=== PATIENT | female | born 1945 | race Hispanic/Latino ===

== ENCOUNTER 2018-10-23 11:36 | Emergency (ER) | payer MEDICARE ==
[~2018-10-23 11:36] MED LIST: ACET1TAB12 PO; ALBU18HF7 IH; ALBUHFA IH; ALEN70TA10; APIX5TAB; APIX5TAB PO; ASPI-555 PO; ATOR20TA65 PO; DICY20TA11 PO; FERR-63 PO; FERR324T4 PO; INSLAN SQ; INSU10VI3 SQ; LISI2.5T2 PO; METO25 PO; METO25TA6 PO; MULT-1192 PO; NITR0.4T SL; NITR0.4T50 SL; OMEP20CA10; OMEP20TA25 PO; SIMV40TA59 PO; TORS10TA18 PO; TORS20TA4 PO; TYL3 PO; ZOLP10TA6 PO
[2018-10-23 12:38] LABS: BASOPHILS % (AUTO) 0.2 % (0.0-5.0); EOSINOPHILS % (AUTO) 0.3 % (0.0-8.0); HEMATOCRIT 35.7 % (36-48); LYMPHOCYTES % (AUTO) 12.9 % (21.0-51.0); MEAN CORPUSCULAR HEMOGLOBIN 29.7 pg (27.0-33.0); MEAN CORPUSCULAR HGB CONC 33.6 g/dL (32.0-36.0); MEAN CORPUSCULAR VOLUME 88.4 fL (79-99); MONOCYTES % (AUTO) 6.4 % (3.0-13.0); NEUTROPHILS % (AUTO) 80.2 % (40.0-77.0); PLATELET COUNT (AUTO) 209 K/uL (130-400); RED BLOOD CELL COUNT(AUTO) 4.04 MIL/uL (4.00-5.50); RED CELL DISTRIBUTION WIDTH 14.3 % (11.0-15.5); WHITE BLOOD COUNT (AUTO) 10.4 K/uL (4.8-10.8)
[2018-10-23 12:55] LABS: ALANINE AMINOTRANSFERASE 21 U/L (12-78); ALBUMIN 2.9 g/dL (3.5-5.0); ALCOHOL, BLOOD < 3 mg/dL (0-10); ASPARTATE AMINOTRANSFERASE 30 U/L (10-37); BILIRUBIN,TOTAL 0.6 mg/dL (0.2-1.0); CARBON DIOXIDE 21 mmol/L (21-32); CREATININE 1.4 mg/dL (0.5-1.5); GLOMERULAR FILTR. RATE CALC 39 mL/min (>60); POTASSIUM 4.2 mmol/L (3.5-5.1); SODIUM SERUM 126 mmol/L (136-145); TOTAL PROTEIN, SERUM 7.6 g/dL (6.0-8.3); UREA NITROGEN, BLOOD 41 mg/dL (7-18)
[2018-10-23 13:04] LABS: CHLORIDE 89 mmol/L (101-111); GLUCOSE,RANDOM 585 mg/dL (70-105)
[2018-10-23] MEDS ORDERED: INSULIN HUMULIN R 100 UNIT/ML 3ML ONE (14:50)
[2018-10-23] MEDS ORDERED: SODIUM CHLORIDE 0.9% 1000ML 1,000 ML IV ONE (14:54)
== END 2018-10-23 16:36 | disposition short-term general hospital (02) ==
LOC: EDH 11:36
DX: G46.4 Cerebellar stroke syndrome (principal); G93.6 Cerebral edema; R51 Headache; I10 Essential (primary) hypertension; E78.5 Hyperlipidemia, unspecified; E11.9 Type 2 diabetes mellitus without complications; Z98.890 Other specified postprocedural states
CPT/HCPCS: 36415; 70450; 80053; 85025; 93005; 96361; 96374; 99285; G0480; J1815; J7030

== ENCOUNTER 2022-08-07 14:01 | Emergency (ER) | payer MEDICARE ==
[~2022-08-07] VITALS: Ht 152.4 cm; Wt 90.7 kg
[~2022-08-07 14:01] MED LIST changes: -ACET1TAB12 PO; -ALBU18HF7 IH; -ALBUHFA IH; -ALEN70TA10; -APIX5TAB; -APIX5TAB PO; -ASPI-555 PO; +ASPI-556 PO; +BENZ-226 PO; +CLOP75TA32 PO; -DICY20TA11 PO; -FERR-63 PO; -FERR324T4 PO; -INSLAN SQ; -INSU10VI3 SQ; -LISI2.5T2 PO; +LORA10TA7 PO; -METO25 PO; -METO25TA6 PO; -MULT-1192 PO; -NITR0.4T50 SL; -OMEP20CA10; -OMEP20TA25 PO; +SACU1TAB PO; -SIMV40TA59 PO; -TORS10TA18 PO; -TYL3 PO; -ZOLP10TA6 PO
[2022-08-07 14:37] VITALS: BP 108/41
== END 2022-08-07 15:43 | disposition home or self-care (01) ==
LOC: EDH 14:01
DX: S81.832A Puncture wound without foreign body, left lower leg, initial encounter (principal); I10 Essential (primary) hypertension; E11.9 Type 2 diabetes mellitus without complications; E78.00 Pure hypercholesterolemia, unspecified; Z79.899 Other long term (current) drug therapy; Z79.82 Long term (current) use of aspirin; Z88.5 Allergy status to narcotic agent; Z88.8 Allergy status to other drugs, medicaments and biological substances; Z98.890 Other specified postprocedural states; Z95.1 Presence of aortocoronary bypass graft; X58.XXXA Exposure to other specified factors, initial encounter; Y93.89 Activity, other specified; Y92.89 Other specified places as the place of occurrence of the external cause; Y99.8 Other external cause status
CPT/HCPCS: 99281

== ENCOUNTER → 2022-10-22 | Outpatient (CLI) | payer MEDICARE ==
[~2022-10-22] MED LIST changes: +APIX5TAB PO; -ATOR20TA65 PO; +ATOR40TA69 PO; +BISA-151 PO; -CLOP75TA32 PO; +MECL-226 PO; +METO-409 PO; +METO2.5T2 PO; +PANT40TA PO
[2022-10-22 16:49] LABS: CREATININE 2.4 mg/dL (0.5-1.5); POTASSIUM 3.1 mmol/L (3.5-5.1)
== END | disposition home or self-care (01) ==
LOC: LAB 15:04
PROVIDERS: ATTEND Internal Medicine Cardiovascular Disease
DX: I10 Essential (primary) hypertension (principal)
CPT/HCPCS: 36415; 80048; 83880

== ENCOUNTER → 2022-11-01 | Outpatient (CLI) | payer MEDICARE ==
[2022-11-01 12:55] LABS: CREATININE 1.9 mg/dL (0.5-1.5)
[2022-11-01 14:21] LABS: POTASSIUM 2.6 mmol/L (3.5-5.1)
== END | disposition home or self-care (01) ==
LOC: LAB 10:50
PROVIDERS: ATTEND Internal Medicine Cardiovascular Disease
DX: I10 Essential (primary) hypertension (principal)
CPT/HCPCS: 36415; 80048

== ENCOUNTER → 2022-11-13 | Outpatient (CLI) | payer MEDICARE ==
[2022-11-13 16:29] LABS: CREATININE 2.4 mg/dL (0.5-1.5); POTASSIUM 3.9 mmol/L (3.5-5.1)
== END | disposition home or self-care (01) ==
LOC: LAB 12:51
PROVIDERS: ATTEND Internal Medicine Cardiovascular Disease
DX: I10 Essential (primary) hypertension (principal)
CPT/HCPCS: 36415; 80048

== ENCOUNTER → 2022-11-27 | Outpatient (CLI) | payer MEDICARE ==
[~2022-11-27] MED LIST changes: -APIX5TAB PO; -ASPI-556 PO; -METO-409 PO; -METO2.5T2 PO
[2022-11-27 16:37] LABS: CREATININE 1.2 mg/dL (0.5-1.5)
== END | disposition home or self-care (01) ==
LOC: LAB 11:57
PROVIDERS: ATTEND Internal Medicine Cardiovascular Disease
DX: I10 Essential (primary) hypertension (principal)
CPT/HCPCS: 36415; 80048

== ENCOUNTER 2022-12-06 12:57 | Inpatient (IN) | payer MEDICARE ==
[~2022-12-06] VITALS: Ht 152.4 cm; Wt 63.9 kg
[2022-12-06] MEDS ORDERED: METOPROLOL TARTRATE 1 MG/ML 5ML VIAL IV ONE (13:01)
[2022-12-06] MEDS ORDERED: ACETAMINOPHEN 650 MG SUPPOSITORY RC ONE (13:02)
[2022-12-06 13:12] VITALS: PULSE 110; RESP 31; O2SAT 97
[2022-12-06] MEDS ORDERED: METO-409 PO (13:19)
[2022-12-06 13:20] LABS: BASOPHILS # (AUTO) 0.03 K/uL (0.00-0.20); BASOPHILS % (AUTO) 0.2 % (0.0-5.0); EOSINOPHILS # (AUTO) 0.01 K/uL (0.00-0.70); EOSINOPHILS % (AUTO) 0.1 % (0.0-8.0); HEMATOCRIT 37.6 % (36-48); IMMATURE GRANULOCYTE ABSOLUTE 0.18 K/uL (0-1); LYMPHOCYTES # (AUTO) 0.7 K/uL (1.0-4.8); LYMPHOCYTES % (AUTO) 3.9 % (21.0-51.0); MEAN CORPUSCULAR HEMOGLOBIN 28.1 pg (27.0-33.0); MEAN CORPUSCULAR HGB CONC 32.7 g/dL (32.0-36.0); MEAN CORPUSCULAR VOLUME 85.8 fL (79-99); MONOCYTES # (AUTO) 0.7 K/uL (0.1-1.0); MONOCYTES % (AUTO) 4.2 % (3.0-13.0); NEUTROPHILS # (AUTO) 15.1 K/uL (1.8-7.7); NEUTROPHILS % (AUTO) 90.5 % (40.0-77.0); PLATELET COUNT (AUTO) 168 K/uL (130-400); RED BLOOD CELL COUNT(AUTO) 4.38 MIL/uL (4.00-5.50); RED CELL DISTRIBUTION WIDTH 16.7 % (11.0-15.5); WHITE BLOOD COUNT (AUTO) 16.6 K/uL (4.8-10.8)
[2022-12-06] MEDS ORDERED: PANT40TA54 PO (13:21)
[2022-12-06] MEDS ORDERED: LORA10TA7 PO (13:22)
[2022-12-06] MEDS ORDERED: METO-391 PO (13:22)
[2022-12-06] MEDS ORDERED: SPIR25TA6 PO (13:23)
[2022-12-06] MEDS ORDERED: TRAM-355 PO (13:25)
[2022-12-06] MEDS ORDERED: TORS20TA4 PO (13:26)
[2022-12-06] MEDS ORDERED: MECL-226 PO (13:27)
[2022-12-06] MEDS ORDERED: SACU1TAB PO (13:28)
[2022-12-06] MEDS ORDERED: MEGE40TA33 PO (13:30)
[2022-12-06] MEDS ORDERED: ZOSYN 3.375GM +NS 50ML IVPB ONE (13:30)
[2022-12-06] MEDS ORDERED: ATORVASTATIN PO (13:31)
[2022-12-06] MEDS ORDERED: HYDROXYZ HCL PO (13:32)
[2022-12-06 13:35] LABS: CREATININE 2.5 mg/dL (0.5-1.5); POTASSIUM 4.1 mmol/L (3.5-5.1)
[2022-12-06] MEDS ORDERED: APIX2.5T PO (13:35)
[2022-12-06 13:42] LABS: ALBUMIN 2.6 g/dL (3.5-5.0); BILIRUBIN,TOTAL 0.7 mg/dL (0.2-1.0); TOTAL PROTEIN, SERUM 7.7 g/dL (6.0-8.3)
[2022-12-06 13:43] LABS: INR 1.24 (0.85-1.15); PROTHROMBIN TIME 14.2 SEC (9.6-11.6)
[2022-12-06 13:44] LABS: PARTIAL THROMBOPLASTIN TIME 40.7 SEC (26.3-35.5)
[2022-12-06] MEDS ORDERED: PHENYLEPHRINE HCL 10 MG/ML 1ML VIAL IV ONE ×4 (14:03→22:58)
[2022-12-06 14:12] LABS: APPEARANCE,URINE TURBID (CLEAR); BILIRUBIN,URINE NEGATIVE (NEGATIVE); COLOR,URINE LIGHT-ORANGE (YELLOW); GLUCOSE, URINE (UA) >=1000 mg/dL (NEGATIVE); KETONES,URINE NEGATIVE (NEGATIVE); LEUKOCYTE ESTERASE ,URINE 500 Leu/uL (NEGATIVE); NITRATE,URINE NEGATIVE (NEGATIVE); OCCULT BLOOD,URINE MODERATE (NEGATIVE); PH,URINE 5.5 (5.0-8.0); PROTEIN,URINE 70 mg/dL (NEGATIVE); UROBILINOGEN,URINE 0.2 mg/dL (0.2-1.0)
[2022-12-06 14:14] LABS: ABG BASE EXCESS -6.1 mmol/L (-2.0-3.0); ABG HCO3 17.7 mmol/L (21.0-28.0); ABG OXYGEN SATURATION 99.1 % (95.0-99.0); ABG PCO2 31 mmHg (32-45); ABG PH 7.378 (7.35-7.450); DEVICE COMMENT RR; PO2, ARTERIAL BG 167.9 mmHg (83.0-108.0); VENT MODE, BG BIPAP 12.6 (ROOM AIR)
[2022-12-06 14:16] LABS: ADD UA MICROSCOPIC YES
[2022-12-06 14:19] LABS: BACTERIA,URINE MOD /HPF (None Seen); SQUAMOUS EPITHELIAL CELL,UR FEW /HPF (0-2); WBC CLUMP MANY /HPF (0-1); WBC,URINE TNTC /HPF (0-1)
[2022-12-06] MEDS: PHENYLEPHRINE HCL 10 MG in 0.9% NACL 250ML 250 ML IV PRN ×2 (15:06→17:29)
[2022-12-06 15:16] VITALS: TEMP 98.2
[2022-12-06] MEDS ORDERED: ACETAMINOPHEN 325 MG TAB PO PRN (16:00)
[2022-12-06] MEDS ORDERED: ONDANSETRON 4MG INJ IV PRN (16:00)
[2022-12-06] MEDS ORDERED: MORPHINE 2 MG SYG IV PRN (16:00)
[2022-12-06 16:28] LABS: HEMOGLOBIN A1C 11.8 % (4.0-6.0)
[2022-12-06] MEDS ORDERED: ENOXAPARIN SODIUM 60 MG/0.6 ML SQ ONE (20:46)
[2022-12-06] MEDS: FAMOTIDINE 20MG VIAL IV SCH (20:47)
[2022-12-06] MEDS: ATORVASTATIN 40 MG TABLET PO SCH (20:48)
[2022-12-06] MEDS: ZOSYN 3.375GM+NS 50ML 50 ML IVPB SCH (20:48)
[2022-12-06] MEDS ORDERED: ZOSYN 3.375GM+NS 50ML 50 ML IV SCH (21:00)
[2022-12-06 22:45] VITALS: PULSE 128; RESP 28; O2SAT 100
[2022-12-07] VITALS (9 sets, daily range): PULSE 19–144; RESP 22–28; O2SAT 96–100
[2022-12-07] MEDS ORDERED: PHENYLEPHRINE HCL 10 MG/ML 1ML VIAL IV ONE ×2 (03:40→12:44)
[2022-12-07] MEDS ORDERED: SODIUM BICARB 8.4% 50ML SYRINGE ONE (06:54)
[2022-12-07 06:56] LABS: HEMATOCRIT 36.9 % (36-48); MEAN CORPUSCULAR HEMOGLOBIN 27.9 pg (27.0-33.0); MEAN CORPUSCULAR HGB CONC 32.2 g/dL (32.0-36.0); MEAN CORPUSCULAR VOLUME 86.6 fL (79-99); RED BLOOD CELL COUNT(AUTO) 4.26 MIL/uL (4.00-5.50); RED CELL DISTRIBUTION WIDTH 17.4 % (11.0-15.5)
[2022-12-07 06:57] LABS: BASOPHILS # (AUTO) 0.05 K/uL (0.00-0.20); BASOPHILS % (AUTO) 0.3 % (0.0-5.0); EOSINOPHILS # (AUTO) 1.41 K/uL (0.00-0.70); EOSINOPHILS % (AUTO) 7.1 % (0.0-8.0); IMMATURE GRANULOCYTE ABSOLUTE 0.13 K/uL (0-1); LYMPHOCYTES # (AUTO) 0.7 K/uL (1.0-4.8); LYMPHOCYTES % (AUTO) 3.6 % (21.0-51.0); MONOCYTES # (AUTO) 0.8 K/uL (0.1-1.0); MONOCYTES % (AUTO) 3.9 % (3.0-13.0); NEUTROPHILS # (AUTO) 16.9 K/uL (1.8-7.7); NEUTROPHILS % (AUTO) 84.4 % (40.0-77.0); PLATELET COUNT (AUTO) 186 K/uL (130-400)
[2022-12-07 07:09] LABS: ALBUMIN 2.4 g/dL (3.5-5.0); BILIRUBIN,TOTAL 0.7 mg/dL (0.2-1.0); CREATININE 2.4 mg/dL (0.5-1.5); TOTAL PROTEIN, SERUM 7.4 g/dL (6.0-8.3)
[2022-12-07] MEDS: PHENYLEPHRINE HCL 10 MG in 0.9% NACL 250ML 250 ML IV PRN ×3 (07:15→12:46)
[2022-12-07 07:19] LABS: CRP QUANTITATIVE 443.1 mg/L (0.00-9.0)
[2022-12-07] MEDS ORDERED: INSULIN HUMULIN R 100 UNIT/ML 3ML SQ SCH ×2 (07:30→12:00)
[2022-12-07] MEDS: ASPIRIN 81MG CHEW TAB PO SCH (08:15)
[2022-12-07] MEDS: ZOSYN 3.375GM+NS 50ML 50 ML IVPB SCH (08:16)
[2022-12-07] MEDS: FAMOTIDINE 20MG VIAL IV SCH (08:16)
[2022-12-07 08:26] LABS: ERYTHROCYTE SEDIMENTATION RATE 80 MM/HR (0-30)
[2022-12-07] MEDS ORDERED: ENOXAPARIN SODIUM 40 MG/0.4 ML SYRINGE SQ SCH (09:00)
[2022-12-07] MEDS ORDERED: MEROPENEM 1 GM VIAL ONE (09:58)
[2022-12-07] MEDS: MEROPENEM 1 GM in 0.9%NACL 100ML 100 ML IV SCH ×2 (09:59→20:31)
[2022-12-07] MEDS ORDERED: AMIODARONE 150MG VIAL 150 MG in DEXTROSE 5%-WATER 100 ML IV SCH (10:00)
[2022-12-07] MEDS ORDERED: AMIODARONE 900MG VIAL 360 MG in DEXTROSE 5%-WATER 200 ML IV SCH (10:00)
[2022-12-07] MEDS ORDERED: RENAL DOSE IV PRN (10:00)
[2022-12-07 10:11] LABS: SARS-CoV-2, RNA, NAAT NEGATIVE SARS CoV-2 (NEGATIVE)
[2022-12-07 10:14] LABS: INFLUENZA TYPE A Negative For Type A (NEGATIVE); INFLUENZA TYPE B Negative For Type B (NEGATIVE)
[2022-12-07] MEDS ORDERED: FUROSEMIDE 40MG VIAL IV ONE (11:00)
[2022-12-07 11:03] LABS: ABG BASE EXCESS -15.2 mmol/L (-2.0-3.0); ABG HCO3 10.5 mmol/L (21.0-28.0); ABG OXYGEN SATURATION 97.8 % (95.0-99.0); ABG PCO2 25 mmHg (32-45); ABG PH 7.233 (7.35-7.450); PO2, ARTERIAL BG 120.5 mmHg (83.0-108.0); VENT MODE, BG BIPAP 10-5 (ROOM AIR)
[2022-12-07] MEDS: SODIUM BICARB 50MEQ 50ML VIAL IV SCH (12:33)
[2022-12-07] MEDS: SODIUM BICARBONATE 650 MG TAB PO SCH ×2 (14:14→20:29)
[2022-12-07] MEDS ORDERED: INSULIN REGULAR, HUMAN 3ML 100 UNIT in 0.9%NACL 100ML 100 ML IV SCH ×2 (16:30)
[2022-12-07] MEDS ORDERED: MAGNESIUM 2GM PREMIX 50ML 50 ML IV SCH (16:30)
[2022-12-07] MEDS ORDERED: MANNITOL 20% IV SCH (16:30)
[2022-12-07] MEDS ORDERED: 0.9%NACL 1000ML 1,000 ML IV SCH (16:30)
[2022-12-07] MEDS ORDERED: D5W-1/2 NS/20MEQ KCL 1,000 ML IV SCH (16:30)
[2022-12-07] MEDS: AMIODARONE 900MG VIAL 540 MG in DEXTROSE 5%-WATER 300 ML IV SCH (16:37)
[2022-12-07] MEDS ORDERED: INSULIN HUMULIN R 100 UNIT/ML 3ML ONE (16:43)
[2022-12-07] MEDS: SODIUM BICARB 8.4% 50ML SYRINGE IVP SCH (17:17)
[2022-12-07 18:51] LABS: CREATININE 2.3 mg/dL (0.5-1.5); MAGNESIUM 1.8 mg/dL (1.80-2.40); PHOSPHORUS 2.8 mg/dL (2.5-4.9); POTASSIUM 3.3 mmol/L (3.5-5.1)
[2022-12-07] MEDS: POTASSIUM CHLORIDE 10MEQ/100ML 100 ML IV PRN (20:11)
[2022-12-07] MEDS: INSULIN GLARGINE 100 UNITS/ML 10 ML VIAL SQ SCH (20:29)
[2022-12-07] MEDS: ATORVASTATIN 40 MG TABLET PO SCH (20:29)
[2022-12-07] MEDS ORDERED: INSULIN GLARGINE 100 UNITS/ML 10 ML VIAL SQ SCH (21:00)
[2022-12-08] VITALS (34 sets, daily range): BP systolic 95–125; BP diastolic 53–79; PULSE 114–144; RESP 15–22; O2SAT 100
[2022-12-08 00:48] LABS: MAGNESIUM 2.4 mg/dL (1.80-2.40); PHOSPHORUS 2.1 mg/dL (2.5-4.9)
[2022-12-08 00:49] LABS: POTASSIUM 2.9 mmol/L (3.5-5.1)
[2022-12-08] MEDS ORDERED: POTASSIUM CHLORIDE 20MEQ/100ML 100 ML IV ONE ×2 (01:00→03:03)
[2022-12-08] MEDS: SODIUM BICARB 8.4% 50ML SYRINGE IVP SCH ×2 (05:00)
[2022-12-08 06:26] LABS: BASOPHILS # (AUTO) 0.02 K/uL (0.00-0.20); BASOPHILS % (AUTO) 0.2 % (0.0-5.0); HEMATOCRIT 30.5 % (36-48); LYMPHOCYTES # (AUTO) 0.7 K/uL (1.0-4.8); LYMPHOCYTES % (AUTO) 5.9 % (21.0-51.0); MEAN CORPUSCULAR HEMOGLOBIN 27.5 pg (27.0-33.0); MEAN CORPUSCULAR HGB CONC 32.5 g/dL (32.0-36.0); MEAN CORPUSCULAR VOLUME 84.7 fL (79-99); MONOCYTES # (AUTO) 0.9 K/uL (0.1-1.0); MONOCYTES % (AUTO) 7.5 % (3.0-13.0); NEUTROPHILS # (AUTO) 10.6 K/uL (1.8-7.7); NEUTROPHILS % (AUTO) 85.6 % (40.0-77.0); NUCLEATED RED BLOOD CELLS 0.2 % (0.0-0.19); PLATELET COUNT (AUTO) 152 K/uL (130-400); RED CELL DISTRIBUTION WIDTH 17.6 % (11.0-15.5); WHITE BLOOD COUNT (AUTO) 12.3 K/uL (4.8-10.8)
[2022-12-08 06:41] LABS: CREATININE 1.8 mg/dL (0.5-1.5); MAGNESIUM 2.2 mg/dL (1.80-2.40); PHOSPHORUS 2.2 mg/dL (2.5-4.9); POTASSIUM 4.6 mmol/L (3.5-5.1)
[2022-12-08 06:48] LABS: ALBUMIN 1.9 g/dL (3.5-5.0); BILIRUBIN,TOTAL 0.6 mg/dL (0.2-1.0); CREATININE 1.8 mg/dL (0.5-1.5); POTASSIUM 4.6 mmol/L (3.5-5.1); TOTAL PROTEIN, SERUM 5.5 g/dL (6.0-8.3)
[2022-12-08 06:54] LABS: CRP QUANTITATIVE 423.6 mg/L (0.00-9.0)
[2022-12-08 07:08] LABS: B-TYPE NATRIURETIC PEPTIDE 3110 pg/mL (0-100)
[2022-12-08 07:24] LABS: MAGNESIUM 2.3 mg/dL (1.80-2.40); PHOSPHORUS 2.6 mg/dL (2.5-4.9)
[2022-12-08] MEDS: SODIUM BICARBONATE 650 MG TAB PO SCH ×3 (09:05→20:22)
[2022-12-08] MEDS: PANTOPRAZOLE 40 MG/VIAL IVP SCH (09:05)
[2022-12-08] MEDS: 0.9%NACL 10ML VIAL IV SCH ×2 (09:06→20:22)
[2022-12-08] MEDS: INSULIN GLARGINE 100 UNITS/ML 10 ML VIAL SQ SCH ×2 (09:06→20:31)
[2022-12-08] MEDS: ASPIRIN 81MG CHEW TAB PO SCH (09:06)
[2022-12-08] MEDS ORDERED: MEROPENEM 1 GM VIAL ONE (09:08)
[2022-12-08] MEDS: MEROPENEM 1 GM in 0.9%NACL 100ML 100 ML IV SCH ×2 (09:10→20:33)
[2022-12-08] MEDS ORDERED: AMIODARONE 900MG VIAL 900 MG in DEXTROSE 5%-WATER 500 ML IV SCH (11:00)
[2022-12-08] MEDS: LINEZOLID 600 MG/ISO-OSM 300 ML IV SCH ×2 (11:12→22:03)
[2022-12-08] MEDS ORDERED: INSULIN HUMULIN R 100 UNIT/ML 3ML SQ SCH (11:30)
[2022-12-08] MEDS: SODIUM BICARB 50MEQ 50ML VIAL IV SCH (12:30)
[2022-12-08 12:48] LABS: CREATININE 1.7 mg/dL (0.5-1.5); MAGNESIUM 2.4 mg/dL (1.80-2.40); PHOSPHORUS 1.5 mg/dL (2.5-4.9); POTASSIUM 4.2 mmol/L (3.5-5.1)
[2022-12-08] MEDS ORDERED: AMIODARONE 150MG VIAL 150 MG in DEXTROSE 5%-WATER 100 ML IV STA (14:29)
[2022-12-08] MEDS ORDERED: PHARMACY COMMUNICATION MISC SCH (14:30)
[2022-12-08] MEDS: AMIODARONE 900MG VIAL 540 MG in DEXTROSE 5%-WATER 300 ML IV SCH (14:37)
[2022-12-08] MEDS ORDERED: INSULIN HUMULIN R 100 UNIT/ML 3ML ONE (14:47)
[2022-12-08] MEDS: INSULIN HUMULIN R 100 UNIT/ML 3ML SQ SCH ×2 (14:49→20:29)
[2022-12-08] MEDS: PHENYLEPHRINE HCL 10 MG in 0.9% NACL 250ML 250 ML IV PRN (16:02)
[2022-12-08] MEDS: ATORVASTATIN 40 MG TABLET PO SCH (20:22)
[2022-12-08] MEDS ORDERED: ENOXAPARIN SODIUM 60 MG/0.6 ML SQ ONE (21:00)
[2022-12-08] MEDS ORDERED: ENOXAPARIN SODIUM 60 MG/0.6 ML SQ SCH (21:00)
[2022-12-09] VITALS (97 sets, daily range): BP systolic 77–140; BP diastolic 39–99; PULSE 90–146; RESP 7–32; O2SAT 99–100
[2022-12-09 01:30] LABS: CREATININE 1.4 mg/dL (0.5-1.5); MAGNESIUM 2.1 mg/dL (1.80-2.40); PHOSPHORUS 1.4 mg/dL (2.5-4.9); POTASSIUM 3.3 mmol/L (3.5-5.1)
[2022-12-09] MEDS: POTASSIUM CHLORIDE 10MEQ/100ML 100 ML IV PRN ×3 (02:04→05:34)
[2022-12-09 06:13] LABS: BASOPHILS # (AUTO) 0.02 K/uL (0.00-0.20); BASOPHILS % (AUTO) 0.1 % (0.0-5.0); EOSINOPHILS # (AUTO) 0.23 K/uL (0.00-0.70); EOSINOPHILS % (AUTO) 1.7 % (0.0-8.0); HEMATOCRIT 30.4 % (36-48); IMMATURE GRANULOCYTE ABSOLUTE 0.15 K/uL (0-1); LYMPHOCYTES # (AUTO) 1.6 K/uL (1.0-4.8); LYMPHOCYTES % (AUTO) 11.6 % (21.0-51.0); MEAN CORPUSCULAR HEMOGLOBIN 28.2 pg (27.0-33.0); MEAN CORPUSCULAR HGB CONC 33.2 g/dL (32.0-36.0); MEAN CORPUSCULAR VOLUME 84.9 fL (79-99); MONOCYTES # (AUTO) 0.9 K/uL (0.1-1.0); MONOCYTES % (AUTO) 6.8 % (3.0-13.0); NEUTROPHILS % (AUTO) 78.7 % (40.0-77.0); PLATELET COUNT (AUTO) 151 K/uL (130-400); RED BLOOD CELL COUNT(AUTO) 3.58 MIL/uL (4.00-5.50); RED CELL DISTRIBUTION WIDTH 17.9 % (11.0-15.5); WHITE BLOOD COUNT (AUTO) 13.9 K/uL (4.8-10.8)
[2022-12-09] MEDS: INSULIN GLARGINE 100 UNITS/ML 10 ML VIAL SQ SCH ×2 (06:27→20:33)
[2022-12-09] MEDS: INSULIN HUMULIN R 100 UNIT/ML 3ML SQ SCH ×4 (06:29→20:35)
[2022-12-09] MEDS: AMIODARONE 900MG VIAL 540 MG in DEXTROSE 5%-WATER 300 ML IV SCH (06:36)
[2022-12-09 06:54] LABS: B-TYPE NATRIURETIC PEPTIDE 1050 pg/mL (0-100)
[2022-12-09] MEDS ORDERED: AMIODARONE 150MG VIAL 150 MG in DEXTROSE 5%-WATER 100 ML IV SCH ×2 (08:00→16:30)
[2022-12-09] MEDS: PANTOPRAZOLE 40 MG/VIAL IVP SCH (08:27)
[2022-12-09] MEDS: ENOXAPARIN SODIUM 60 MG/0.6 ML SQ SCH ×2 (08:27→08:30)
[2022-12-09] MEDS: ASPIRIN 81MG CHEW TAB PO SCH (08:28)
[2022-12-09] MEDS: 0.9%NACL 10ML VIAL IV SCH ×2 (08:28→20:34)
[2022-12-09] MEDS: SODIUM BICARBONATE 650 MG TAB PO SCH ×3 (08:28→20:32)
[2022-12-09 08:41] LABS: ALBUMIN 1.8 g/dL (3.5-5.0); BILIRUBIN,TOTAL 0.4 mg/dL (0.2-1.0); CREATININE 1.3 mg/dL (0.5-1.5); POTASSIUM 3.9 mmol/L (3.5-5.1); TOTAL PROTEIN, SERUM 6.1 g/dL (6.0-8.3)
[2022-12-09 09:20] LABS: MAGNESIUM 2.1 mg/dL (1.80-2.40); PHOSPHORUS 1.6 mg/dL (2.5-4.9)
[2022-12-09] MEDS: MEROPENEM 1 GM in 0.9%NACL 100ML 100 ML IV SCH ×2 (09:53→20:32)
[2022-12-09] MEDS: AMIODARONE 150MG VIAL 150 MG in DEXTROSE 5%-WATER 100 ML IV SCH ×2 (10:15→16:29)
[2022-12-09] MEDS: LINEZOLID 600 MG/ISO-OSM 300 ML IV SCH ×2 (10:35→20:32)
[2022-12-09] MEDS: SODIUM BICARB 50MEQ 50ML VIAL IV SCH (12:30)
[2022-12-09] MEDS: IPRATROPIUM 0.5 MG/2.5 ML INH IH SCH (18:00)
[2022-12-09] MEDS: ATORVASTATIN 40 MG TABLET PO SCH (20:31)
[2022-12-09] MEDS ORDERED: METOPROLOL TARTRATE 25 MG TAB PO SCH (21:00)
[2022-12-10] VITALS (103 sets, daily range): BP systolic 90–131; BP diastolic 41–92; PULSE 98–136; RESP 4–35; O2SAT 97–100
[2022-12-10] MEDS: AMIODARONE 900MG VIAL 540 MG in DEXTROSE 5%-WATER 300 ML IV SCH (03:19)
[2022-12-10 05:22] LABS: BASOPHILS # (AUTO) 0.03 K/uL (0.00-0.20); BASOPHILS % (AUTO) 0.3 % (0.0-5.0); EOSINOPHILS # (AUTO) 0.33 K/uL (0.00-0.70); EOSINOPHILS % (AUTO) 2.8 % (0.0-8.0); HEMATOCRIT 33.2 % (36-48); IMMATURE GRANULOCYTE ABSOLUTE 0.13 K/uL (0-1); LYMPHOCYTES # (AUTO) 1.9 K/uL (1.0-4.8); MEAN CORPUSCULAR HEMOGLOBIN 27.4 pg (27.0-33.0); MEAN CORPUSCULAR HGB CONC 32.2 g/dL (32.0-36.0); MEAN CORPUSCULAR VOLUME 84.9 fL (79-99); MONOCYTES # (AUTO) 0.6 K/uL (0.1-1.0); MONOCYTES % (AUTO) 5.5 % (3.0-13.0); NEUTROPHILS # (AUTO) 8.6 K/uL (1.8-7.7); NEUTROPHILS % (AUTO) 74.3 % (40.0-77.0); PLATELET COUNT (AUTO) 156 K/uL (130-400); RED BLOOD CELL COUNT(AUTO) 3.91 MIL/uL (4.00-5.50); RED CELL DISTRIBUTION WIDTH 18.1 % (11.0-15.5); WHITE BLOOD COUNT (AUTO) 11.6 K/uL (4.8-10.8)
[2022-12-10 05:47] LABS: ALBUMIN 1.6 g/dL (3.5-5.0); BILIRUBIN,TOTAL 0.6 mg/dL (0.2-1.0); MAGNESIUM 2.1 mg/dL (1.80-2.40); POTASSIUM 3.8 mmol/L (3.5-5.1)
[2022-12-10] MEDS: INSULIN HUMULIN R 100 UNIT/ML 3ML SQ SCH ×4 (07:30→21:00)
[2022-12-10] MEDS: IPRATROPIUM 0.5 MG/2.5 ML INH IH SCH ×5 (07:32→23:18)
[2022-12-10] MEDS: PANTOPRAZOLE 40 MG/VIAL IVP SCH (08:18)
[2022-12-10] MEDS: ASPIRIN 81MG CHEW TAB PO SCH (08:19)
[2022-12-10] MEDS: SODIUM BICARBONATE 650 MG TAB PO SCH ×3 (08:19→20:54)
[2022-12-10] MEDS: AMIODARONE 200 MG TABLET PO SCH ×2 (08:20→20:54)
[2022-12-10] MEDS: ENOXAPARIN SODIUM 60 MG/0.6 ML SQ SCH (08:22)
[2022-12-10] MEDS: INSULIN GLARGINE 100 UNITS/ML 10 ML VIAL SQ SCH ×2 (08:24→21:09)
[2022-12-10] MEDS: 0.9%NACL 10ML VIAL IV SCH ×2 (08:25→20:57)
[2022-12-10] MEDS: MEROPENEM 1 GM in 0.9%NACL 100ML 100 ML IV SCH ×2 (08:26→20:57)
[2022-12-10] MEDS ORDERED: FUROSEMIDE 40MG VIAL IV ONE (09:00)
[2022-12-10] MEDS: LINEZOLID 600 MG/ISO-OSM 300 ML IV SCH ×2 (10:17→20:55)
[2022-12-10] MEDS: SODIUM BICARB 50MEQ 50ML VIAL IV SCH (12:02)
[2022-12-10] MEDS: MIDODRINE HCL 5 MG TABLET PO SCH ×3 (13:36→20:55)
[2022-12-10] MEDS: ATORVASTATIN 40 MG TABLET PO SCH (20:55)
[2022-12-11] VITALS (102 sets, daily range): BP systolic 79–139; BP diastolic 35–89; PULSE 87–130; RESP 11–42; O2SAT 99–100
[2022-12-11 04:17] LABS: BASOPHILS # (AUTO) 0.03 K/uL (0.00-0.20); BASOPHILS % (AUTO) 0.2 % (0.0-5.0); EOSINOPHILS # (AUTO) 0.34 K/uL (0.00-0.70); EOSINOPHILS % (AUTO) 2.2 % (0.0-8.0); HEMATOCRIT 34.4 % (36-48); IMMATURE GRANULOCYTE ABSOLUTE 0.21 K/uL (0-1); LYMPHOCYTES # (AUTO) 2.5 K/uL (1.0-4.8); LYMPHOCYTES % (AUTO) 16.2 % (21.0-51.0); MEAN CORPUSCULAR HEMOGLOBIN 27.5 pg (27.0-33.0); MEAN CORPUSCULAR HGB CONC 32.8 g/dL (32.0-36.0); MEAN CORPUSCULAR VOLUME 83.7 fL (79-99); MONOCYTES # (AUTO) 0.6 K/uL (0.1-1.0); MONOCYTES % (AUTO) 4.1 % (3.0-13.0); NEUTROPHILS # (AUTO) 11.9 K/uL (1.8-7.7); PLATELET COUNT (AUTO) 169 K/uL (130-400); RED BLOOD CELL COUNT(AUTO) 4.11 MIL/uL (4.00-5.50); RED CELL DISTRIBUTION WIDTH 17.8 % (11.0-15.5); WHITE BLOOD COUNT (AUTO) 15.7 K/uL (4.8-10.8)
[2022-12-11 04:41] LABS: POTASSIUM 3.7 mmol/L (3.5-5.1)
[2022-12-11 04:42] LABS: CREATININE 1.2 mg/dL (0.5-1.5); MAGNESIUM 1.9 mg/dL (1.80-2.40); PHOSPHORUS 2.7 mg/dL (2.5-4.9)
[2022-12-11] MEDS: IPRATROPIUM 0.5 MG/2.5 ML INH IH SCH ×4 (07:06→23:08)
[2022-12-11] MEDS: INSULIN HUMULIN R 100 UNIT/ML 3ML SQ SCH ×4 (07:30→21:00)
[2022-12-11] MEDS: ENOXAPARIN SODIUM 60 MG/0.6 ML SQ SCH (09:00)
[2022-12-11] MEDS: ASPIRIN 81MG CHEW TAB PO SCH (09:00)
[2022-12-11] MEDS: 0.9%NACL 10ML VIAL IV SCH ×2 (09:00→19:50)
[2022-12-11] MEDS: AMIODARONE 200 MG TABLET PO SCH ×2 (09:01→19:37)
[2022-12-11] MEDS: MIDODRINE HCL 5 MG TABLET PO SCH ×3 (09:01→19:42)
[2022-12-11] MEDS: PANTOPRAZOLE 40 MG/VIAL IVP SCH (09:01)
[2022-12-11] MEDS: SODIUM BICARBONATE 650 MG TAB PO SCH ×3 (09:01→19:42)
[2022-12-11] MEDS: INSULIN GLARGINE 100 UNITS/ML 10 ML VIAL SQ SCH ×2 (09:03→21:18)
[2022-12-11] MEDS ORDERED: FUROSEMIDE 40MG VIAL IV ONE (09:30)
[2022-12-11] MEDS: MEROPENEM 1 GM in 0.9%NACL 100ML 100 ML IV SCH ×2 (09:37→21:17)
[2022-12-11] MEDS: PHENYLEPHRINE HCL 10 MG in 0.9% NACL 250ML 250 ML IV PRN (09:41)
[2022-12-11] MEDS ORDERED: COMPOUND IV MISC 1 EACH IVSOLN MISC PRN (10:00)
[2022-12-11] MEDS ORDERED: MECLIZINE HCL 12.5 MG TABLET PO PRN (11:30)
[2022-12-11] MEDS: LINEZOLID 600 MG/ISO-OSM 300 ML IV SCH ×2 (11:50→22:24)
[2022-12-11] MEDS: AMIODARONE 900MG VIAL 540 MG in DEXTROSE 5%-WATER 300 ML IV SCH (13:58)
[2022-12-11] MEDS: ACETAMINOPHEN 325 MG TAB PO PRN (19:37)
[2022-12-11] MEDS: ATORVASTATIN 40 MG TABLET PO SCH (19:37)
[2022-12-12] VITALS (39 sets, daily range): BP systolic 98–140; BP diastolic 43–86; PULSE 92–125; RESP 14–49; O2SAT 96–100
[2022-12-12 04:34] LABS: HEMATOCRIT 30.5 % (36-48); MEAN CORPUSCULAR HEMOGLOBIN 27.4 pg (27.0-33.0); MEAN CORPUSCULAR HGB CONC 33.4 g/dL (32.0-36.0); RED BLOOD CELL COUNT(AUTO) 3.72 MIL/uL (4.00-5.50); RED CELL DISTRIBUTION WIDTH 17.5 % (11.0-15.5); WHITE BLOOD COUNT (AUTO) 12.3 K/uL (4.8-10.8)
[2022-12-12 04:47] LABS: CREATININE 1.3 mg/dL (0.5-1.5); MAGNESIUM 1.7 mg/dL (1.80-2.40)
[2022-12-12] MEDS: INSULIN HUMULIN R 100 UNIT/ML 3ML SQ SCH ×4 (05:44→21:41)
[2022-12-12] MEDS: MAGNESIUM 2GM PREMIX 50ML 50 ML IV SCH (06:00)
[2022-12-12] MEDS: INSULIN GLARGINE 100 UNITS/ML 10 ML VIAL SQ SCH ×2 (06:01→21:41)
[2022-12-12] MEDS: IPRATROPIUM 0.5 MG/2.5 ML INH IH SCH ×3 (07:10→18:48)
[2022-12-12] MEDS: 0.9%NACL 10ML VIAL IV SCH ×2 (08:37→21:42)
[2022-12-12] MEDS: PANTOPRAZOLE 40 MG/VIAL IVP SCH (08:37)
[2022-12-12] MEDS: SODIUM BICARBONATE 650 MG TAB PO SCH (08:38)
[2022-12-12] MEDS: ENOXAPARIN SODIUM 60 MG/0.6 ML SQ SCH (08:38)
[2022-12-12] MEDS: LORATADINE 10 MG TABLET PO SCH (08:38)
[2022-12-12] MEDS: ASPIRIN 81MG CHEW TAB PO SCH (08:38)
[2022-12-12] MEDS: MEROPENEM 1 GM in 0.9%NACL 100ML 100 ML IV SCH ×2 (08:40→21:33)
[2022-12-12] MEDS: AMIODARONE 200 MG TABLET PO SCH ×4 (09:00→21:33)
[2022-12-12] MEDS: MEGESTROL ACETATE 40 MG PO SCH (09:00)
[2022-12-12] MEDS: MIDODRINE HCL 5 MG TABLET PO SCH ×3 (09:06→21:33)
[2022-12-12] MEDS: AMIODARONE 900MG VIAL 540 MG in DEXTROSE 5%-WATER 300 ML IV SCH (10:16)
[2022-12-12] MEDS: LINEZOLID 600 MG/ISO-OSM 300 ML IV SCH ×2 (10:31→23:21)
[2022-12-12] MEDS ORDERED: FUROSEMIDE 40MG VIAL IV ONE (11:00)
[2022-12-12] MEDS: ATORVASTATIN 40 MG TABLET PO SCH (21:32)
[2022-12-13] VITALS (18 sets, daily range): BP systolic 87–125; BP diastolic 51–84; PULSE 87–118; RESP 18–26; O2SAT 98–100
[2022-12-13 04:48] LABS: BASOPHILS # (AUTO) 0.02 K/uL (0.00-0.20); BASOPHILS % (AUTO) 0.2 % (0.0-5.0); EOSINOPHILS # (AUTO) 0.31 K/uL (0.00-0.70); EOSINOPHILS % (AUTO) 2.9 % (0.0-8.0); HEMATOCRIT 30.6 % (36-48); IMMATURE GRANULOCYTE ABSOLUTE 0.08 K/uL (0-1); LYMPHOCYTES # (AUTO) 2.3 K/uL (1.0-4.8); LYMPHOCYTES % (AUTO) 21.5 % (21.0-51.0); MEAN CORPUSCULAR HEMOGLOBIN 28.1 pg (27.0-33.0); MEAN CORPUSCULAR HGB CONC 33.3 g/dL (32.0-36.0); MEAN CORPUSCULAR VOLUME 84.3 fL (79-99); MONOCYTES # (AUTO) 0.5 K/uL (0.1-1.0); NEUTROPHILS # (AUTO) 7.3 K/uL (1.8-7.7); NEUTROPHILS % (AUTO) 69.6 % (40.0-77.0); PLATELET COUNT (AUTO) 174 K/uL (130-400); RED BLOOD CELL COUNT(AUTO) 3.63 MIL/uL (4.00-5.50); RED CELL DISTRIBUTION WIDTH 17.3 % (11.0-15.5); WHITE BLOOD COUNT (AUTO) 10.5 K/uL (4.8-10.8)
[2022-12-13 05:00] LABS: CREATININE 1.5 mg/dL (0.5-1.5); POTASSIUM 3.9 mmol/L (3.5-5.1)
[2022-12-13] MEDS: INSULIN GLARGINE 100 UNITS/ML 10 ML VIAL SQ SCH ×2 (06:07→20:09)
[2022-12-13] MEDS: INSULIN HUMULIN R 100 UNIT/ML 3ML SQ SCH ×4 (06:07→20:09)
[2022-12-13] MEDS: IPRATROPIUM 0.5 MG/2.5 ML INH IH SCH ×5 (07:03→23:25)
[2022-12-13] MEDS: ASPIRIN 81MG CHEW TAB PO SCH (08:23)
[2022-12-13] MEDS: LORATADINE 10 MG TABLET PO SCH (08:23)
[2022-12-13] MEDS: AMIODARONE 200 MG TABLET PO SCH ×3 (08:24→22:15)
[2022-12-13] MEDS: ENOXAPARIN SODIUM 60 MG/0.6 ML SQ SCH (08:24)
[2022-12-13] MEDS: PANTOPRAZOLE 40 MG/VIAL IVP SCH (08:25)
[2022-12-13] MEDS: 0.9%NACL 10ML VIAL IV SCH ×2 (08:30→22:15)
[2022-12-13] MEDS: MEGESTROL ACETATE 40 MG PO SCH (08:30)
[2022-12-13] MEDS: MEROPENEM 1 GM in 0.9%NACL 100ML 100 ML IV SCH ×2 (08:31→22:16)
[2022-12-13] MEDS: MIDODRINE HCL 5 MG TABLET PO SCH ×3 (08:56→22:15)
[2022-12-13] MEDS ORDERED: FUROSEMIDE 40MG VIAL IV ONE (09:00)
[2022-12-13] MEDS: FUROSEMIDE 40 MG TABLET PO SCH ×2 (10:01→16:15)
[2022-12-13] MEDS: LINEZOLID 600 MG/ISO-OSM 300 ML IV SCH ×2 (10:01→22:59)
[2022-12-13] MEDS ORDERED: IPRATROPIUM 0.5 MG/2.5 ML INH IH ONE (17:00)
[2022-12-13] MEDS ORDERED: LACTATED RINGERS 1000ML 1,365 ML IV ONE (17:00)
[2022-12-13] MEDS: ATORVASTATIN 40 MG TABLET PO SCH (22:16)
[2022-12-14] VITALS (16 sets, daily range): BP systolic 97–134; BP diastolic 59–86; PULSE 90–117; RESP 18–25; O2SAT 99–100
[2022-12-14 03:36] LABS: ABG BASE EXCESS 3.4 mmol/L (-2.0-3.0); ABG HCO3 27.1 mmol/L (21.0-28.0); ABG OXYGEN SATURATION 97.8 % (95.0-99.0); ABG PCO2 38 mmHg (32-45); ABG PH 7.469 (7.35-7.450); PO2, ARTERIAL BG 97.1 mmHg (83.0-108.0); VENT MODE, BG BIPAP 10-5 (ROOM AIR)
[2022-12-14 05:29] LABS: BASOPHILS # (AUTO) 0.01 K/uL (0.00-0.20); BASOPHILS % (AUTO) 0.1 % (0.0-5.0); EOSINOPHILS # (AUTO) 0.31 K/uL (0.00-0.70); EOSINOPHILS % (AUTO) 3.3 % (0.0-8.0); HEMATOCRIT 29.2 % (36-48); IMMATURE GRANULOCYTE ABSOLUTE 0.05 K/uL (0-1); LYMPHOCYTES # (AUTO) 1.6 K/uL (1.0-4.8); LYMPHOCYTES % (AUTO) 17.1 % (21.0-51.0); MEAN CORPUSCULAR HEMOGLOBIN 27.3 pg (27.0-33.0); MEAN CORPUSCULAR HGB CONC 32.5 g/dL (32.0-36.0); MEAN CORPUSCULAR VOLUME 83.9 fL (79-99); MONOCYTES # (AUTO) 0.6 K/uL (0.1-1.0); MONOCYTES % (AUTO) 5.9 % (3.0-13.0); NEUTROPHILS # (AUTO) 6.8 K/uL (1.8-7.7); NEUTROPHILS % (AUTO) 73.1 % (40.0-77.0); PLATELET COUNT (AUTO) 179 K/uL (130-400); RED BLOOD CELL COUNT(AUTO) 3.48 MIL/uL (4.00-5.50); RED CELL DISTRIBUTION WIDTH 17.6 % (11.0-15.5); WHITE BLOOD COUNT (AUTO) 9.3 K/uL (4.8-10.8)
[2022-12-14 05:49] LABS: CREATININE 1.4 mg/dL (0.5-1.5); POTASSIUM 4.1 mmol/L (3.5-5.1)
[2022-12-14] MEDS: INSULIN HUMULIN R 100 UNIT/ML 3ML SQ SCH ×4 (07:06→20:40)
[2022-12-14] MEDS: INSULIN GLARGINE 100 UNITS/ML 10 ML VIAL SQ SCH ×2 (07:06→20:39)
[2022-12-14] MEDS: IPRATROPIUM 0.5 MG/2.5 ML INH IH SCH ×4 (07:13→23:12)
[2022-12-14] MEDS: ASPIRIN 81MG CHEW TAB PO SCH (08:02)
[2022-12-14] MEDS: PANTOPRAZOLE 40 MG/VIAL IVP SCH (08:02)
[2022-12-14] MEDS: FUROSEMIDE 40 MG TABLET PO SCH (08:03)
[2022-12-14] MEDS: MEGESTROL ACETATE 40 MG PO SCH (08:03)
[2022-12-14] MEDS: MIDODRINE HCL 5 MG TABLET PO SCH ×3 (08:03→20:37)
[2022-12-14] MEDS: LORATADINE 10 MG TABLET PO SCH (08:03)
[2022-12-14] MEDS: AMIODARONE 200 MG TABLET PO SCH ×3 (08:03→20:37)
[2022-12-14] MEDS: ENOXAPARIN SODIUM 60 MG/0.6 ML SQ SCH (08:04)
[2022-12-14] MEDS: MEROPENEM 1 GM in 0.9%NACL 100ML 100 ML IV SCH (09:52)
[2022-12-14] MEDS: 0.9%NACL 10ML VIAL IV SCH ×2 (09:52→20:37)
[2022-12-14] MEDS ORDERED: IOHEXOL 350 MG/ML 100ML INFUS..BTL IV ONE (11:24)
[2022-12-14] MEDS: CEFTRIAXONE 2GM VIAL IVPB SCH (14:35)
[2022-12-14] MEDS ORDERED: BUMETANIDE 2.5MG/10ML VIAL 40 ML IV SCH (16:00)
[2022-12-14] MEDS ORDERED: LACTULOSE 20 GM/30 ML UDCUP PO PRN (16:30)
[2022-12-14] MEDS: LACTULOSE 20 GM/30 ML UDCUP PO SCH (20:37)
[2022-12-14] MEDS: ATORVASTATIN 40 MG TABLET PO SCH (20:37)
[2022-12-15] VITALS (17 sets, daily range): BP systolic 99–153; BP diastolic 58–88; PULSE 51–116; RESP 18–25; O2SAT 95–100
[2022-12-15 04:00] LABS: HEMATOCRIT 28.3 % (36-48); MEAN CORPUSCULAR HEMOGLOBIN 27.5 pg (27.0-33.0); MEAN CORPUSCULAR HGB CONC 32.5 g/dL (32.0-36.0); MEAN CORPUSCULAR VOLUME 84.5 fL (79-99); PLATELET COUNT (AUTO) 168 K/uL (130-400); RED BLOOD CELL COUNT(AUTO) 3.35 MIL/uL (4.00-5.50); RED CELL DISTRIBUTION WIDTH 17.8 % (11.0-15.5); WHITE BLOOD COUNT (AUTO) 7.4 K/uL (4.8-10.8)
[2022-12-15 04:18] LABS: ALBUMIN 1.6 g/dL (3.5-5.0); BILIRUBIN,TOTAL 0.3 mg/dL (0.2-1.0); CREATININE 1.3 mg/dL (0.5-1.5); MAGNESIUM 1.7 mg/dL (1.80-2.40); PHOSPHORUS 3.3 mg/dL (2.5-4.9); POTASSIUM 4.1 mmol/L (3.5-5.1); TOTAL PROTEIN, SERUM 5.7 g/dL (6.0-8.3)
[2022-12-15] MEDS: MAGNESIUM 2GM PREMIX 50ML 50 ML IV SCH (04:24)
[2022-12-15] MEDS: INSULIN HUMULIN R 100 UNIT/ML 3ML SQ SCH ×4 (06:08→20:08)
[2022-12-15 06:16] LABS: BASOPHILS % (MANUAL) 1 % (0-2); EOSINOPHILS % (MANUAL) 2 % (1-6); LYMPHOCYTES % (MANUAL) 19 % (22-44); MAN.DIFF COMMENT-IMPRESSION MANUAL DIFFERENTIAL; MONOCYTES % (MANUAL) 1 % (2-9); SEGMENTED NEUTROPHILS % 77 % (40-70); TOTAL CELLS COUNTED 100
[2022-12-15 06:17] LABS: PLATELET MORPHOLOGY COMMENT ADEQUATE; WBC MORPHOLOGY HYPERSEGMENT NEUT 1+
[2022-12-15] MEDS: INSULIN GLARGINE 100 UNITS/ML 10 ML VIAL SQ SCH ×2 (06:31→20:07)
[2022-12-15] MEDS: IPRATROPIUM 0.5 MG/2.5 ML INH IH SCH ×4 (06:58→23:08)
[2022-12-15] MEDS: MEGESTROL ACETATE 40 MG PO SCH (09:00)
[2022-12-15] MEDS: 0.9%NACL 10ML VIAL IV SCH ×2 (09:00→20:06)
[2022-12-15] MEDS: ENOXAPARIN SODIUM 60 MG/0.6 ML SQ SCH (09:00)
[2022-12-15] MEDS ORDERED: BUMETANIDE 1MG/4ML VIAL IVP SCH (09:30)
[2022-12-15] MEDS: PANTOPRAZOLE 40 MG/VIAL IVP SCH (09:43)
[2022-12-15] MEDS: LACTULOSE 20 GM/30 ML UDCUP PO SCH ×2 (09:43→19:26)
[2022-12-15] MEDS: AMIODARONE 200 MG TABLET PO SCH ×3 (09:43→20:09)
[2022-12-15] MEDS: ASPIRIN 81MG CHEW TAB PO SCH (09:43)
[2022-12-15] MEDS: LORATADINE 10 MG TABLET PO SCH (09:43)
[2022-12-15] MEDS: MIDODRINE HCL 5 MG TABLET PO SCH ×3 (09:44→21:00)
[2022-12-15] MEDS: BUMETANIDE 2.5MG/10ML VIAL 40 ML IV SCH ×2 (12:09→19:52)
[2022-12-15] MEDS: CEFTRIAXONE 2GM VIAL IVPB SCH (14:03)
[2022-12-15] MEDS ORDERED: LACTULOSE 20 GM/30 ML UDCUP PO PRN (19:30)
[2022-12-15] MEDS: ATORVASTATIN 40 MG TABLET PO SCH (20:06)
[2022-12-16] VITALS (16 sets, daily range): BP systolic 116–135; BP diastolic 53–76; PULSE 91–115; RESP 18–22; O2SAT 96–100
[2022-12-16] MEDS: BUMETANIDE 2.5MG/10ML VIAL 40 ML IV SCH ×4 (00:45→12:36)
[2022-12-16 03:54] LABS: BASOPHILS # (AUTO) 0.02 K/uL (0.00-0.20); BASOPHILS % (AUTO) 0.2 % (0.0-5.0); EOSINOPHILS # (AUTO) 0.23 K/uL (0.00-0.70); EOSINOPHILS % (AUTO) 2.2 % (0.0-8.0); HEMATOCRIT 28.6 % (36-48); IMMATURE GRANULOCYTE ABSOLUTE 0.04 K/uL (0-1); LYMPHOCYTES # (AUTO) 2.2 K/uL (1.0-4.8); LYMPHOCYTES % (AUTO) 21.4 % (21.0-51.0); MEAN CORPUSCULAR HEMOGLOBIN 27.3 pg (27.0-33.0); MEAN CORPUSCULAR HGB CONC 32.5 g/dL (32.0-36.0); MEAN CORPUSCULAR VOLUME 83.9 fL (79-99); MONOCYTES # (AUTO) 0.7 K/uL (0.1-1.0); MONOCYTES % (AUTO) 6.2 % (3.0-13.0); NEUTROPHILS # (AUTO) 7.3 K/uL (1.8-7.7); NEUTROPHILS % (AUTO) 69.6 % (40.0-77.0); PLATELET COUNT (AUTO) 159 K/uL (130-400); RED BLOOD CELL COUNT(AUTO) 3.41 MIL/uL (4.00-5.50); RED CELL DISTRIBUTION WIDTH 17.7 % (11.0-15.5); WHITE BLOOD COUNT (AUTO) 10.5 K/uL (4.8-10.8)
[2022-12-16 04:08] LABS: CREATININE 1.4 mg/dL (0.5-1.5); MAGNESIUM 2.1 mg/dL (1.80-2.40); PHOSPHORUS 3.2 mg/dL (2.5-4.9); POTASSIUM 3.5 mmol/L (3.5-5.1)
[2022-12-16] MEDS: INSULIN HUMULIN R 100 UNIT/ML 3ML SQ SCH ×4 (04:48→21:00)
[2022-12-16] MEDS ORDERED: KCL 20 MEQ ERTAB PO ONE (05:00)
[2022-12-16] MEDS: IPRATROPIUM 0.5 MG/2.5 ML INH IH SCH ×4 (07:12→23:24)
[2022-12-16] MEDS: INSULIN GLARGINE 100 UNITS/ML 10 ML VIAL SQ SCH ×2 (07:29→21:19)
[2022-12-16] MEDS: ASPIRIN 81MG CHEW TAB PO SCH (08:47)
[2022-12-16] MEDS: PANTOPRAZOLE 40 MG/VIAL IVP SCH (08:47)
[2022-12-16] MEDS: LORATADINE 10 MG TABLET PO SCH (08:47)
[2022-12-16] MEDS: MIDODRINE HCL 5 MG TABLET PO SCH ×3 (08:48→21:10)
[2022-12-16] MEDS: ENOXAPARIN SODIUM 60 MG/0.6 ML SQ SCH (08:48)
[2022-12-16] MEDS: AMIODARONE 200 MG TABLET PO SCH ×3 (08:48→21:10)
[2022-12-16] MEDS: 0.9%NACL 10ML VIAL IV SCH ×2 (08:49→21:08)
[2022-12-16] MEDS: MEGESTROL ACETATE 40 MG PO SCH (08:49)
[2022-12-16] MEDS: CEFTRIAXONE 2GM VIAL IVPB SCH (14:10)
[2022-12-16] MEDS: ACETAMINOPHEN 325 MG TAB PO PRN ×2 (14:58→21:10)
[2022-12-16] MEDS ORDERED: BUMETANIDE 2.5MG/10ML VIAL 80 ML IV SCH ×2 (17:04→17:30)
[2022-12-16] MEDS: ATORVASTATIN 40 MG TABLET PO SCH (21:09)
[2022-12-17] VITALS (15 sets, daily range): BP systolic 115–126; BP diastolic 44–70; PULSE 69–111; RESP 15–24; O2SAT 95–100
[2022-12-17 04:10] LABS: HEMATOCRIT 28.5 % (36-48); MEAN CORPUSCULAR HEMOGLOBIN 27.9 pg (27.0-33.0); MEAN CORPUSCULAR HGB CONC 32.6 g/dL (32.0-36.0); MEAN CORPUSCULAR VOLUME 85.6 fL (79-99); RED BLOOD CELL COUNT(AUTO) 3.33 MIL/uL (4.00-5.50); RED CELL DISTRIBUTION WIDTH 17.3 % (11.0-15.5)
[2022-12-17 04:44] LABS: BILIRUBIN,TOTAL 0.3 mg/dL (0.2-1.0); CREATININE 1.4 mg/dL (0.5-1.5); POTASSIUM 3.9 mmol/L (3.5-5.1); TOTAL PROTEIN, SERUM 6.4 g/dL (6.0-8.3)
[2022-12-17] MEDS: INSULIN HUMULIN R 100 UNIT/ML 3ML SQ SCH ×4 (05:47→20:47)
[2022-12-17] MEDS: INSULIN GLARGINE 100 UNITS/ML 10 ML VIAL SQ SCH ×2 (05:53→20:48)
[2022-12-17] MEDS: IPRATROPIUM 0.5 MG/2.5 ML INH IH SCH ×4 (07:27→23:21)
[2022-12-17] MEDS: MEGESTROL ACETATE 40 MG PO SCH (09:00)
[2022-12-17] MEDS: PANTOPRAZOLE 40 MG/VIAL IVP SCH (10:19)
[2022-12-17] MEDS: AMIODARONE 200 MG TABLET PO SCH ×3 (10:19→20:50)
[2022-12-17] MEDS: MIDODRINE HCL 5 MG TABLET PO SCH ×3 (10:19→20:50)
[2022-12-17] MEDS: LORATADINE 10 MG TABLET PO SCH (10:20)
[2022-12-17] MEDS: 0.9%NACL 10ML VIAL IV SCH ×2 (10:20→20:50)
[2022-12-17] MEDS: ASPIRIN 81MG CHEW TAB PO SCH (10:20)
[2022-12-17] MEDS: ENOXAPARIN SODIUM 60 MG/0.6 ML SQ SCH (10:21)
[2022-12-17] MEDS: ACETAMINOPHEN 325 MG TAB PO PRN (13:06)
[2022-12-17] MEDS: CEFTRIAXONE 2GM VIAL IVPB SCH (13:07)
[2022-12-17] MEDS ORDERED: NITROGLYCERIN 0.4 MG SL TAB SL PRN (15:30)
[2022-12-17] MEDS ORDERED: NITROGLYCERIN 0.4 MG SL TAB SL ONE (15:41)
[2022-12-17] MEDS: ATORVASTATIN 40 MG TABLET PO SCH (20:50)
[2022-12-17] MEDS ORDERED: APIXABAN 5 MG TABLET PO SCH (21:00)
[2022-12-18] VITALS (18 sets, daily range): BP systolic 100–134; BP diastolic 53–84; PULSE 70–100; RESP 15–20; O2SAT 96–100
[2022-12-18 04:20] LABS: HEMATOCRIT 28.2 % (36-48); MEAN CORPUSCULAR HEMOGLOBIN 27.5 pg (27.0-33.0); MEAN CORPUSCULAR HGB CONC 32.3 g/dL (32.0-36.0); MEAN CORPUSCULAR VOLUME 85.2 fL (79-99); RED BLOOD CELL COUNT(AUTO) 3.31 MIL/uL (4.00-5.50); RED CELL DISTRIBUTION WIDTH 17.2 % (11.0-15.5); WHITE BLOOD COUNT (AUTO) 8.4 K/uL (4.8-10.8)
[2022-12-18 05:00] LABS: ALBUMIN 2.2 g/dL (3.5-5.0); BILIRUBIN,TOTAL 0.5 mg/dL (0.2-1.0); CREATININE 1.4 mg/dL (0.5-1.5); MAGNESIUM 1.8 mg/dL (1.80-2.40); POTASSIUM 3.6 mmol/L (3.5-5.1); TOTAL PROTEIN, SERUM 6.6 g/dL (6.0-8.3)
[2022-12-18] MEDS: INSULIN HUMULIN R 100 UNIT/ML 3ML SQ SCH ×4 (05:25→22:20)
[2022-12-18] MEDS: MAGNESIUM 2GM PREMIX 50ML 50 ML IV SCH (05:44)
[2022-12-18] MEDS: INSULIN GLARGINE 100 UNITS/ML 10 ML VIAL SQ SCH ×2 (05:45→22:28)
[2022-12-18] MEDS: IPRATROPIUM 0.5 MG/2.5 ML INH IH SCH ×4 (07:00→22:51)
[2022-12-18] MEDS ORDERED: KCL 20 MEQ ERTAB PO ONE (08:30)
[2022-12-18] MEDS ORDERED: MAGNESIUM 2GM PREMIX 50ML 50 ML IV SCH (08:30)
[2022-12-18] MEDS: MEGESTROL ACETATE 40 MG PO SCH (09:00)
[2022-12-18] MEDS: PANTOPRAZOLE 40 MG/VIAL IVP SCH (10:15)
[2022-12-18] MEDS: ASPIRIN 81MG CHEW TAB PO SCH (10:16)
[2022-12-18] MEDS: LORATADINE 10 MG TABLET PO SCH (10:16)
[2022-12-18] MEDS: MIDODRINE HCL 5 MG TABLET PO SCH ×3 (10:16→22:17)
[2022-12-18] MEDS: 0.9%NACL 10ML VIAL IV SCH ×2 (10:17→22:16)
[2022-12-18] MEDS: APIXABAN 5 MG TABLET PO SCH ×2 (10:20→22:17)
[2022-12-18] MEDS: AMIODARONE 200 MG TABLET PO SCH (10:53)
[2022-12-18] MEDS: CEFTRIAXONE 2GM VIAL IVPB SCH (15:02)
[2022-12-18] MEDS: BUMETANIDE 1MG/4ML VIAL IVP SCH ×2 (15:03→22:17)
[2022-12-18] MEDS: ATORVASTATIN 40 MG TABLET PO SCH (22:17)
[2022-12-19] VITALS (14 sets, daily range): BP systolic 99–134; BP diastolic 45–89; PULSE 69–108; RESP 16–20; O2SAT 95–99
[2022-12-19 03:43] LABS: HEMATOCRIT 26.9 % (36-48); MEAN CORPUSCULAR HEMOGLOBIN 27.9 pg (27.0-33.0); MEAN CORPUSCULAR HGB CONC 32.7 g/dL (32.0-36.0); MEAN CORPUSCULAR VOLUME 85.4 fL (79-99); RED BLOOD CELL COUNT(AUTO) 3.15 MIL/uL (4.00-5.50); RED CELL DISTRIBUTION WIDTH 16.8 % (11.0-15.5); WHITE BLOOD COUNT (AUTO) 11.5 K/uL (4.8-10.8)
[2022-12-19 04:01] LABS: ALBUMIN 2.2 g/dL (3.5-5.0); BILIRUBIN,TOTAL 0.3 mg/dL (0.2-1.0); CREATININE 1.9 mg/dL (0.5-1.5); MAGNESIUM 2.2 mg/dL (1.80-2.40); POTASSIUM 3.8 mmol/L (3.5-5.1); TOTAL PROTEIN, SERUM 6.6 g/dL (6.0-8.3)
[2022-12-19] MEDS: BUMETANIDE 1MG/4ML VIAL IVP SCH ×2 (05:56→21:26)
[2022-12-19] MEDS: INSULIN HUMULIN R 100 UNIT/ML 3ML SQ SCH ×4 (06:07→21:28)
[2022-12-19] MEDS: INSULIN GLARGINE 100 UNITS/ML 10 ML VIAL SQ SCH ×2 (06:18→21:29)
[2022-12-19] MEDS: IPRATROPIUM 0.5 MG/2.5 ML INH IH SCH ×4 (07:19→23:38)
[2022-12-19] MEDS: MEGESTROL ACETATE 40 MG PO SCH (07:40)
[2022-12-19] MEDS: 0.9%NACL 10ML VIAL IV SCH ×2 (08:31→21:27)
[2022-12-19] MEDS: PANTOPRAZOLE 40 MG/VIAL IVP SCH (08:32)
[2022-12-19] MEDS: APIXABAN 5 MG TABLET PO SCH ×2 (08:32→21:27)
[2022-12-19] MEDS: LORATADINE 10 MG TABLET PO SCH (08:33)
[2022-12-19] MEDS: MIDODRINE HCL 5 MG TABLET PO SCH ×3 (08:33→21:26)
[2022-12-19] MEDS: AMIODARONE 200 MG TABLET PO SCH (08:33)
[2022-12-19] MEDS: ASPIRIN 81MG CHEW TAB PO SCH (08:33)
[2022-12-19] MEDS ORDERED: ACETAZOLAMIDE SODIUM 500 MG VIAL IV SCH (10:30)
[2022-12-19] MEDS: CEFTRIAXONE 2GM VIAL IVPB SCH (14:46)
[2022-12-19] MEDS ORDERED: BUMETANIDE 1MG/4ML VIAL IVP SCH (18:00)
[2022-12-19] MEDS: ATORVASTATIN 40 MG TABLET PO SCH (21:27)
[2022-12-20] VITALS (13 sets, daily range): BP systolic 101–136; BP diastolic 50–77; PULSE 79–114; RESP 16–20; O2SAT 94–95
[2022-12-20 03:38] LABS: HEMATOCRIT 27.2 % (36-48); MEAN CORPUSCULAR HEMOGLOBIN 27.8 pg (27.0-33.0); MEAN CORPUSCULAR HGB CONC 32.7 g/dL (32.0-36.0); RED BLOOD CELL COUNT(AUTO) 3.2 MIL/uL (4.00-5.50); RED CELL DISTRIBUTION WIDTH 16.9 % (11.0-15.5); WHITE BLOOD COUNT (AUTO) 11.4 K/uL (4.8-10.8)
[2022-12-20 03:57] LABS: ALBUMIN 2.3 g/dL (3.5-5.0); BILIRUBIN,TOTAL 0.2 mg/dL (0.2-1.0); CREATININE 1.8 mg/dL (0.5-1.5); MAGNESIUM 1.9 mg/dL (1.80-2.40); PHOSPHORUS 3.3 mg/dL (2.5-4.9); POTASSIUM 3.5 mmol/L (3.5-5.1); TOTAL PROTEIN, SERUM 6.8 g/dL (6.0-8.3)
[2022-12-20] MEDS: INSULIN HUMULIN R 100 UNIT/ML 3ML SQ SCH ×4 (05:56→21:59)
[2022-12-20] MEDS: IPRATROPIUM 0.5 MG/2.5 ML INH IH SCH ×3 (06:36→18:45)
[2022-12-20] MEDS: INSULIN GLARGINE 100 UNITS/ML 10 ML VIAL SQ SCH ×2 (06:47→21:59)
[2022-12-20] MEDS ORDERED: KCL 20 MEQ ERTAB PO ONE (08:00)
[2022-12-20] MEDS: APIXABAN 5 MG TABLET PO SCH ×2 (08:34→21:52)
[2022-12-20] MEDS: LORATADINE 10 MG TABLET PO SCH (08:34)
[2022-12-20] MEDS: AMIODARONE 200 MG TABLET PO SCH (08:34)
[2022-12-20] MEDS: ASPIRIN 81MG CHEW TAB PO SCH (08:34)
[2022-12-20] MEDS: MIDODRINE HCL 5 MG TABLET PO SCH ×3 (08:35→21:52)
[2022-12-20] MEDS: BUMETANIDE 1MG/4ML VIAL IVP SCH ×2 (08:35→21:52)
[2022-12-20] MEDS: PANTOPRAZOLE 40 MG/VIAL IVP SCH (08:35)
[2022-12-20] MEDS: MEGESTROL ACETATE 40 MG PO SCH (08:36)
[2022-12-20] MEDS: 0.9%NACL 10ML VIAL IV SCH ×2 (08:36→21:52)
[2022-12-20] MEDS ORDERED: ACETAZOLAMIDE SODIUM 500 MG VIAL IV SCH (09:30)
[2022-12-20] MEDS ORDERED: ALTEPLASE 2MG VIAL 2 MG/VIAL VIAL IVCATH ONE (11:00)
[2022-12-20] MEDS: CEFTRIAXONE 2GM VIAL IVPB SCH (15:38)
[2022-12-20] MEDS: ATORVASTATIN 40 MG TABLET PO SCH (21:52)
[2022-12-21] VITALS (10 sets, daily range): BP systolic 102–148; BP diastolic 56–66; PULSE 80–95; RESP 18–22; O2SAT 95–97
[2022-12-21] MEDS: IPRATROPIUM 0.5 MG/2.5 ML INH IH SCH ×3 (00:33→11:38)
[2022-12-21 04:45] LABS: HEMATOCRIT 27.3 % (36-48); MEAN CORPUSCULAR VOLUME 84.8 fL (79-99); RED BLOOD CELL COUNT(AUTO) 3.22 MIL/uL (4.00-5.50); RED CELL DISTRIBUTION WIDTH 16.9 % (11.0-15.5); WHITE BLOOD COUNT (AUTO) 12.3 K/uL (4.8-10.8)
[2022-12-21 05:10] LABS: ALBUMIN 2.5 g/dL (3.5-5.0); BILIRUBIN,TOTAL 0.3 mg/dL (0.2-1.0); POTASSIUM 3.4 mmol/L (3.5-5.1); TOTAL PROTEIN, SERUM 7.4 g/dL (6.0-8.3)
[2022-12-21] MEDS: INSULIN GLARGINE 100 UNITS/ML 10 ML VIAL SQ SCH (06:27)
[2022-12-21] MEDS: INSULIN HUMULIN R 100 UNIT/ML 3ML SQ SCH ×2 (06:27→11:35)
[2022-12-21] MEDS: PANTOPRAZOLE 40 MG/VIAL IVP SCH (08:41)
[2022-12-21] MEDS: APIXABAN 5 MG TABLET PO SCH (08:41)
[2022-12-21] MEDS: 0.9%NACL 10ML VIAL IV SCH (08:41)
[2022-12-21] MEDS: AMIODARONE 200 MG TABLET PO SCH (08:41)
[2022-12-21] MEDS: BUMETANIDE 1MG/4ML VIAL IVP SCH (08:41)
[2022-12-21] MEDS: MIDODRINE HCL 5 MG TABLET PO SCH (08:42)
[2022-12-21] MEDS: ASPIRIN 81MG CHEW TAB PO SCH (08:42)
[2022-12-21] MEDS: LORATADINE 10 MG TABLET PO SCH (08:42)
[2022-12-21] MEDS: MEGESTROL ACETATE 40 MG PO SCH (08:43)
[2022-12-21] MEDS ORDERED: KCL 20 MEQ ERTAB PO ONE (11:00)
== END 2022-12-21 12:30 | DRG 871 ==
LOC: EDH 12:57 → EDHIP 15:40 → 2CH 12-08 12:38 → 2DH 12-12 10:45
PROVIDERS: ADMIT Hospitalist; ATTEND Hospitalist
PROC: 5A09357 Assistance with Respiratory Ventilation, Less than 24 Consecutive Hours, Continuous Positive Airway Pressure (ICD-10-PCS; 2022-12-06)
PROC: 5A09357 Assistance with Respiratory Ventilation, Less than 24 Consecutive Hours, Continuous Positive Airway Pressure (ICD-10-PCS; 2022-12-07)
PROC: 02HV33Z Insertion of Infusion Device into Superior Vena Cava, Percutaneous Approach (ICD-10-PCS; principal; 2022-12-08)
PROC: 5A09357 Assistance with Respiratory Ventilation, Less than 24 Consecutive Hours, Continuous Positive Airway Pressure (ICD-10-PCS; 2022-12-08)
PROC: 5A09357 Assistance with Respiratory Ventilation, Less than 24 Consecutive Hours, Continuous Positive Airway Pressure (ICD-10-PCS; 2022-12-09)
PROC: 5A09357 Assistance with Respiratory Ventilation, Less than 24 Consecutive Hours, Continuous Positive Airway Pressure (ICD-10-PCS; 2022-12-10)
PROC: 5A09357 Assistance with Respiratory Ventilation, Less than 24 Consecutive Hours, Continuous Positive Airway Pressure (ICD-10-PCS; 2022-12-11)
PROC: 5A09357 Assistance with Respiratory Ventilation, Less than 24 Consecutive Hours, Continuous Positive Airway Pressure (ICD-10-PCS; 2022-12-12)
PROC: 5A09357 Assistance with Respiratory Ventilation, Less than 24 Consecutive Hours, Continuous Positive Airway Pressure (ICD-10-PCS; 2022-12-13)
PROC: 5A09357 Assistance with Respiratory Ventilation, Less than 24 Consecutive Hours, Continuous Positive Airway Pressure (ICD-10-PCS; 2022-12-14)
PROC: 5A09357 Assistance with Respiratory Ventilation, Less than 24 Consecutive Hours, Continuous Positive Airway Pressure (ICD-10-PCS; 2022-12-15)
PROC: 5A09357 Assistance with Respiratory Ventilation, Less than 24 Consecutive Hours, Continuous Positive Airway Pressure (ICD-10-PCS; 2022-12-16)
PROC: 5A09357 Assistance with Respiratory Ventilation, Less than 24 Consecutive Hours, Continuous Positive Airway Pressure (ICD-10-PCS; 2022-12-17)
PROC: 5A09357 Assistance with Respiratory Ventilation, Less than 24 Consecutive Hours, Continuous Positive Airway Pressure (ICD-10-PCS; 2022-12-18)
DX: A41.51 Sepsis due to Escherichia coli [E. coli] (principal); E11.10 Type 2 diabetes mellitus with ketoacidosis without coma; J96.01 Acute respiratory failure with hypoxia; R65.21 Severe sepsis with septic shock; J69.0 Pneumonitis due to inhalation of food and vomit; I50.43 Acute on chronic combined systolic (congestive) and diastolic (congestive) heart failure; N30.00 Acute cystitis without hematuria; I48.19 Other persistent atrial fibrillation; N17.9 Acute kidney failure, unspecified; I13.0 Hypertensive heart and chronic kidney disease with heart failure and stage 1 through stage 4 chronic kidney disease, or unspecified chronic kidney disease; I69.351 Hemiplegia and hemiparesis following cerebral infarction affecting right dominant side; Z20.822 Contact with and (suspected) exposure to COVID-19; I48.0 Paroxysmal atrial fibrillation; D64.9 Anemia, unspecified; E66.01 Morbid (severe) obesity due to excess calories; E78.5 Hyperlipidemia, unspecified; I25.10 Atherosclerotic heart disease of native coronary artery without angina pectoris; N18.32 Chronic kidney disease, stage 3b; E11.22 Type 2 diabetes mellitus with diabetic chronic kidney disease; Z88.8 Allergy status to other drugs, medicaments and biological substances; Z79.01 Long term (current) use of anticoagulants; Z95.1 Presence of aortocoronary bypass graft; Z74.01 Bed confinement status; Z79.4 Long term (current) use of insulin; Z79.899 Other long term (current) drug therapy; Z83.3 Family history of diabetes mellitus; Z68.27 Body mass index [BMI] 27.0-27.9, adult
CPT/HCPCS: 36415; 36600; 71045; 71270; 80048; 80053; 81001; 82270; 82550; 82803; 82948; 83036; 83605; 83735; 83880; 84100; 84145; 84484; 85025; 85027; 85378; 85610; 85651; 85730; 86140; 87040; 87077; 87088; 87186; 87635; 87804; 93005; 94640; 94660; 94664; 94667; 94668; 99291; C1751; C1894; C9113; G0378; J0282; J0696; J1120; J1650; J1815; J1940; J2020; J2185; J2371; J2543; J2997; J3475; J3480; J3490; J7050; J7060; Q9967; A4600; J1644

== ENCOUNTER 2023-01-22 15:31 | Emergency (ER) | payer MEDICARE ==
[~2023-01-22] VITALS: Ht 157.5 cm; Wt 74.8 kg
[2023-01-22] MEDS ORDERED: ONDANSETRON 4MG INJ IVP ONE (16:00)
[2023-01-22] MEDS ORDERED: MORPHINE 2 MG SYG IVP ONE (16:00)
[2023-01-22 16:21] LABS: BASOPHILS # (AUTO) 0.02 K/uL (0.00-0.20); BASOPHILS % (AUTO) 0.2 % (0.0-5.0); EOSINOPHILS % (AUTO) 5.6 % (0.0-8.0); HEMATOCRIT 38.4 % (36-48); IMMATURE GRANULOCYTE ABSOLUTE 0.04 K/uL (0-1); LYMPHOCYTES # (AUTO) 2.3 K/uL (1.0-4.8); LYMPHOCYTES % (AUTO) 25.8 % (21.0-51.0); MEAN CORPUSCULAR HEMOGLOBIN 28.1 pg (27.0-33.0); MEAN CORPUSCULAR HGB CONC 32.6 g/dL (32.0-36.0); MEAN CORPUSCULAR VOLUME 86.3 fL (79-99); MONOCYTES # (AUTO) 0.5 K/uL (0.1-1.0); NEUTROPHILS # (AUTO) 5.6 K/uL (1.8-7.7); PLATELET COUNT (AUTO) 278 K/uL (130-400); RED BLOOD CELL COUNT(AUTO) 4.45 MIL/uL (4.00-5.50); RED CELL DISTRIBUTION WIDTH 16.5 % (11.0-15.5)
[2023-01-22 16:55] LABS: ALBUMIN 3.3 g/dL (3.5-5.0); BILIRUBIN,TOTAL 0.8 mg/dL (0.2-1.0); CREATININE 2.2 mg/dL (0.5-1.5); POTASSIUM 3.9 mmol/L (3.5-5.1); TOTAL PROTEIN, SERUM 9.3 g/dL (6.0-8.3)
[2023-01-22 16:58] LABS: APPEARANCE,URINE TURBID (CLEAR); BILIRUBIN,URINE NEGATIVE (NEGATIVE); COLOR,URINE YELLOW (YELLOW); GLUCOSE, URINE (UA) NEGATIVE (NEGATIVE); KETONES,URINE NEGATIVE (NEGATIVE); LEUKOCYTE ESTERASE ,URINE 500 Leu/uL (NEGATIVE); NITRATE,URINE NEGATIVE (NEGATIVE); OCCULT BLOOD,URINE SMALL (NEGATIVE); PH,URINE 6.5 (5.0-8.0); PROTEIN,URINE 20 mg/dL (NEGATIVE); UROBILINOGEN,URINE 0.2 mg/dL (0.2-1.0)
[2023-01-22 17:02] LABS: ADD UA MICROSCOPIC YES
[2023-01-22 17:20] LABS: BACTERIA,URINE RARE /HPF (None Seen); MUCUS,URINE RARE LPF (None Seen); NON-SQUAMOUS EPITHELIAL CELL 2 /HPF (0-2); SQUAMOUS EPITHELIAL CELL,UR RARE /HPF (0-2); UNCLASSIFIED CRYSTAL 2 /HPF (None Seen); WBC CLUMP FEW /HPF (0-1); WBC,URINE 51-100 /HPF (0-1)
[2023-01-22] MEDS ORDERED: CEFU500T67 PO (17:30)
[2023-01-22] MEDS ORDERED: ACET-2806 PO (17:30)
[2023-01-22 20:06] VITALS: BP 126/54; PULSE 55; RESP 18; O2SAT 95
== END 2023-01-22 20:56 | disposition home or self-care (01) ==
LOC: EDH 15:31
DX: N30.90 Cystitis, unspecified without hematuria (principal); E11.22 Type 2 diabetes mellitus with diabetic chronic kidney disease; I12.9 Hypertensive chronic kidney disease with stage 1 through stage 4 chronic kidney disease, or unspecified chronic kidney disease; N18.9 Chronic kidney disease, unspecified; E87.1 Hypo-osmolality and hyponatremia; E78.00 Pure hypercholesterolemia, unspecified; Z87.440 Personal history of urinary (tract) infections
CPT/HCPCS: 99285; 74176; 96374; 71045; 96375; 84484; 80053; 83690; 85025; 87077; 87088; 87186; 81001; 36415; J2270; J2405

== ENCOUNTER 2023-05-20 19:26 | Emergency (ER) | payer MEDICARE ==
[~2023-05-20] VITALS: Ht 152.4 cm; Wt 72.6 kg
[~2023-05-20 19:26] MED LIST changes: +AMIO200T68 PO; +APIX2.5T PO; +ATOR10TA69 PO; -ATOR40TA69 PO; -BENZ-226 PO; -BISA-151 PO; +BUME2TAB5 PO; +Folic Acid/Vitamin B Comp W-C PO; +LINA290C PO; -MECL-226 PO; +MEGE40TA5 PO; +METO2.5T2 PO; -NITR0.4T SL; -PANT40TA PO; -SACU1TAB PO; -TORS20TA4 PO; +VITAD50000 PO
[2023-05-20] MEDS ORDERED: BACITRACIN 1 EACH PACKET TP ONE (20:41)
[2023-05-20] MEDS ORDERED: LACTATED RINGERS 1000ML 1,000 ML IV ONE (21:00)
[2023-05-20 21:56] LABS: APPEARANCE,URINE CLOUDY (CLEAR); BILIRUBIN,URINE NEGATIVE (NEGATIVE); COLOR,URINE LIGHT-YELLOW (YELLOW); GLUCOSE, URINE (UA) 300 mg/dL (NEGATIVE); KETONES,URINE NEGATIVE (NEGATIVE); LEUKOCYTE ESTERASE ,URINE 500 Leu/uL (NEGATIVE); NITRATE,URINE NEGATIVE (NEGATIVE); PROTEIN,URINE NEGATIVE (NEGATIVE); UROBILINOGEN,URINE 0.2 mg/dL (0.2-1.0)
[2023-05-20 21:59] LABS: ADD UA MICROSCOPIC YES
[2023-05-20 22:02] LABS: BACTERIA,URINE RARE /HPF (None Seen); MUCUS,URINE RARE LPF (None Seen); SQUAMOUS EPITHELIAL CELL,UR RARE /HPF (0-2); WBC CLUMP MOD /HPF (0-1); WBC,URINE TNTC /HPF (0-1); YEAST,URINE BUDDING FEW /HPF (None Seen)
[2023-05-20] MEDS ORDERED: CEPH500B PO (23:06)
[2023-05-21 03:32] VITALS: BP 136/64; PULSE 76; RESP 16; O2SAT 98
== END 2023-05-21 03:45 | disposition home or self-care (01) ==
LOC: EDH 19:26
DX: N39.0 Urinary tract infection, site not specified (principal); E11.9 Type 2 diabetes mellitus without complications; E78.00 Pure hypercholesterolemia, unspecified; I10 Essential (primary) hypertension; I48.91 Unspecified atrial fibrillation; J44.9 Chronic obstructive pulmonary disease, unspecified; Z79.01 Long term (current) use of anticoagulants; Z86.73 Personal history of transient ischemic attack (TIA), and cerebral infarction without residual deficits; Z88.5 Allergy status to narcotic agent; Z95.1 Presence of aortocoronary bypass graft
CPT/HCPCS: 87070; 87077 ×3; 87088; 87186 ×3; 81001; 99283; 96360; J7120